=== PATIENT | male | born 1990 | race Caucasian/White ===

== ENCOUNTER 2023-03-22 22:28 | Emergency (ER) | payer OTHER, SELFPAY ==
[2023-03-22] VITALS (7 sets, daily range): BP systolic 128–138; BP diastolic 67–71; PULSE 61–70; RESP 18; TEMP 36.7; O2SAT 93–94; BMI 28.9
--- NOTE | 2023-03-22 22:44 | CRLHL7_ITS ---
For Patients: As a result of the Century Cures Act, medical imaging exams and procedure reports are released immediately into your electronic medical record. You may view this report before your referring provider. If you have questions, please contact your health care provider. INDICATION: Vertigo COMPARISON: None available. TECHNIQUE: CT examination of the head was performed with 3 mm thick axial and 2 mm thick coronal and sagittal sections without intravenous contrast. Images were obtained from the vertex of the skull through the skull base, and I examined the images with the brain and bone windows. Please note that all CT scans at this facility use dose modulation, iterative reconstruction, and/or weight-based dosing when appropriate to reduce radiation dose to as low as reasonably achievable. FINDINGS: : The brain is normal in appearance for the patient`s age on today`s study, with no sign of mass lesion, mass effect, hemorrhage, or edema. The ventricles and sulci are normal in appearance for the patient`s age. The visualized portions of the orbits are normal in appearance. The visualized portions of the paranasal sinuses and mastoids are clear. The osseous structures are normal in their appearance with no sign of abnormality in the skull base or calvarium. IMPRESSION: Normal noncontrast CT of the head for the patient`s age. Please note that all CT scans at this facility use dose modulation, iterative reconstruction, and/or weight-based dosing when appropriate to reduce radiation dose to as low as reasonably achievable. Dictated by Timmy Petty MD @ 03/23/2023 12:19:41 AM (Electronically Signed)
--- NOTE | 2023-03-22 22:46 | ED_ITS ---
HPI - General Adult General Time Seen by Provider: 22:46 <Luke Cool MD - Last Filed: 03/23/23 09:24> Date Seen: 03/22/23 <Luke Cool MD - Last Filed: 03/23/23 09:24> Chief complaint: Nausea/Vomiting <Luke Cool MD - Last Filed: 03/23/23 09:24> Stated complaint: Nausea Vomiting <Luke Cool MD - Last Filed: 03/23/23 09:24> Time Seen by Provider: 03/22/23 22:33 <Luke Cool MD - Last Filed: 03/23/23 09:24> Source: patient <uLke Cool MD - Last Filed: 03/23/23 09:24> Mode of arrival: wheelchair <Luke Cool MD - Last Filed: 03/23/23 09:24> Limitations: physical limitation <Luke Cool MD - Last Filed: 03/23/23 09:24> History of Present Illness HPI narrative: 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 If he moves his head quickly or turns his head side to side he gets dizzy. He went to [facility] got some meclizine but it did not seem to help much and then decided to come to the ER. Patient denies chest pain breathing problem. He is very healthy he has no chronic medical illnesses. He has not had any recent fever chills cough chest pain. <Luke Cool MD - Last Filed: 03/23/23 09:24> Related Data Allergies/adverse reactions: Allergies Allergy/AdvReac Type Severity Reaction Status Date / Time No Known Drug Allergies Allergy Verified 03/22/23 22:37 <Luke Cool MD - Last Filed: 03/23/23 09:24> Review of Systems Status of ROS: Reports: 6 or more systems reviewed and unremarkable except as noted in History and below <Luke Cool MD - Last Filed: 03/23/23 09:24> PFSH PFSH Social History: Social History Smoking Status: Never smoker Do you use any of these nicotine containing products: None How often do you have a drink containing alcohol: 2-3 times a week How many standard drinks containing alcohol do you have on a typical day: 1 or 2 How often do you have six or more drinks on one occasion: Less than monthly AUDIT-C Alcohol total score: 4 Non-prescribed substance use: denies use <Luke Cool MD - Last Filed: 03/23/23 09:24> Exam Narrative: Exam Narrative: Objective: Vital signs unremarkable in general patient apparent distress he is alert orient x3 HEENT shows dry mucous membranes minimal nystagmus pupils react equal reaction to light neck is supple chest clear heart rhythm regular heart murmur abdomen benign soft extremities neurologic nonfocal, skin periphery warm and dry <Luke Cool MD - Last Filed: 03/23/23 09:24> Const: Vital Signs, click to edit/add: Vital Signs - 24 hr 03/22/23 22:32 03/22/23 23:31 03/22/23 23:16 Temperature 98.1 F Pulse Rate 70 Pulse Rate [Pulse Oximeter] 70 Respiratory Rate 18 Blood Pressure Blood Pressure [Ri ght Forearm] 138/67 Pulse Oximetry 94 94 93 Oxygen Delivery Me thod Room Air 03/22/23 23:30 03/22/23 23:37 03/23/23 01:13 Temperature 97.5 F L Pulse Rate 68 67 Pulse Rate [Pulse Oximeter] 65 Respiratory Rate 20 Blood Pressure 128/71 Blood Pressure [Ri ght Forearm] 122/70 Pulse Oximetry 94 94 Oxygen Delivery Me thod 03/22/23 23:38 03/22/23 23:48 03/23/23 00:00 Temperature Pulse Rate 68 61 69 Pulse Rate [Pulse Oximeter] Respiratory Rate Blood Pressure Blood Pressure [Ri ght Forearm] Pulse Oximetry 94 94 95 Oxygen Delivery Me thod 03/23/23 00:15 03/23/23 00:30 03/23/23 00:45 Temperature Pulse Rate 67 68 90 Pulse Rate [Pulse Oximeter] Respiratory Rate Blood Pressure Blood Pressure [Ri ght Forearm] Pulse Oximetry 95 97 97 Oxygen Delivery Me thod 03/23/23 00:51 Temperature Pulse Rate 73 Pulse Rate [Pulse Oximeter] Respiratory Rate Blood Pressure 122/70 Blood Pressure [Ri ght Forearm] Pulse Oximetry 97 Oxygen Delivery Me thod <Luke Cool MD - Last Filed: 03/23/23 09:24> Vital Signs, click to edit/add: Vital Signs - 24 hr 03/22/23 22:32 03/22/23 23:31 03/22/23 23:16 Temperature 98.1 F Pulse Rate 70 Pulse Rate [Pulse Oximeter] 70 Respiratory Rate 18 Blood Pressure Blood Pressure [Ri ght Forearm] 138/67 Pulse Oximetry 94 94 93 Oxygen Delivery Me thod Room Air 03/22/23 23:30 03/22/23 23:37 03/23/23 01:13 Temperature 97.5 F L Pulse Rate 68 67 Pulse Rate [Pulse Oximeter] 65 Respiratory Rate 20 Blood Pressure 128/71 Blood Pressure [Ri ght Forearm] 122/70 Pulse Oximetry 94 94 Oxygen Delivery Me thod 03/22/23 23:38 03/22/23 23:48 03/23/23 00:00 Temperature Pulse Rate 68 61 69 Pulse Rate [Pulse Oximeter] Respiratory Rate Blood Pressure Blood Pressure [Ri ght Forearm] Pulse Oximetry 94 94 95 Oxygen Delivery Me thod 03/23/23 00:15 03/23/23 00:30 03/23/23 00:45 Temperature Pulse Rate 67 68 90 Pulse Rate [Pulse Oximeter] Respiratory Rate Blood Pressure Blood Pressure [Ri ght Forearm] Pulse Oximetry 95 97 97 Oxygen Delivery Me thod 03/23/23 00:51 Temperature Pulse Rate 73 Pulse Rate [Pulse Oximeter] Respiratory Rate Blood Pressure 122/70 Blood Pressure [Ri ght Forearm] Pulse Oximetry 97 Oxygen Delivery Me thod <Clifford Huerta MD - Last Filed: 03/23/23 09:13> Course Vital Signs Vital signs: Initial Vital Signs Temperature 98.1 F 03/22/23 22:32 Temperature Source Temporal Artery Scan 03/22/23 22:32 Pulse Rate 70 03/22/23 22:32 Pulse Rhythm Regular 03/22/23 22:32 Respiratory Rate 18 03/22/23 22:32 Blood Pressure 138/67 03/22/23 22:32 Blood Pressure Mean 90 03/22/23 22:32 Pulse Oximetry 94 03/22/23 22:32 Oxygen Delivery Method Room Air 03/22/23 22:32 Vital Signs Temperature 98.1 F 03/22/23 22:32 Pulse Rate 70 03/22/23 22:32 Respiratory Rate 18 03/22/23 22:32 Blood Pressure 138/67 03/22/23 22:32 Pulse Oximetry 94 03/22/23 22:32 Oxygen Delivery Method Room Air 03/22/23 22:32 Temperature 97.5 F L 03/23/23 01:13 Pulse Rate 65 03/23/23 01:13 Respiratory Rate 20 03/23/23 01:13 Blood Pressure 122/70 03/23/23 01:13 Pulse Oximetry 97 03/23/23 00:51 Oxygen Delivery Method Room Air 03/22/23 22:32 <Luke Cool MD - Last Filed: 03/23/23 09:24> Initial Vital Signs Temperature 98.1 F 03/22/23 22:32 Temperature Source Temporal Artery Scan 03/22/23 22:32 Pulse Rate 70 03/22/23 22:32 Pulse Rhythm Regular 03/22/23 22:32 Respiratory Rate 18 03/22/23 22:32 Blood Pressure 138/67 03/22/23 22:32 Blood Pressure Mean 90 03/22/23 22:32 Pulse Oximetry 94 03/22/23 22:32 Oxygen Delivery Method Room Air 03/22/23 22:32 Vital Signs Temperature 98.1 F 03/22/23 22:32 Pulse Rate 70 03/22/23 22:32 Respiratory Rate 18 03/22/23 22:32 Blood Pressure 138/67 03/22/23 22:32 Pulse Oximetry 94 03/22/23 22:32 Oxygen Delivery Method Room Air 03/22/23 22:32 Temperature 97.5 F L 03/23/23 01:13 Pulse Rate 65 03/23/23 01:13 Respiratory Rate 20 03/23/23 01:13 Blood Pressure 122/70 03/23/23 01:13 Pulse Oximetry 97 03/23/23 00:51 Oxygen Delivery Method Room Air 03/22/23 22:32 <Clifford Huerta MD - Last Filed: 03/23/23 09:13> Medical Decision Making MDM Narrative Medical decision making narrative: [age] year white male with history of vertigo, nausea dehydration from the dizziness. I think it be reasonable at this point give he has not had this in the past to get a head CT scan, will check laboratory studies game IV fluid, IV Ativan. Disposition pending his improvement in findings. Addendum: Patient's EKG shows nonspecific changes, but usually this is associated in the young person with a healthy heart, I do not see any obvious ischemic change may have some mild early repolarization. White count hemoglobin are normal Addendum 11:45 p.m.: The patient feels better with his Ativan he is sedated from it. He he has had CT now, if his CT scan looks reassuring, into the med Ativan home rest light activity recommended. His EKG shows normal sinus rhythm as mention. Reviewing the patient's head CT scan it looks largely unremarkable, await Radiology overreading at this looks negative, I think he can go home with Ativan as needed, off work for couple of days light activity. His laboratory studies thus far look reassuring <Luke Cool MD - Last Filed: 03/23/23 09:24> [age] year white male with history of vertigo, nausea dehydration from the dizziness. I think it be reasonable at this point give he has not had this in the past to get a head CT scan, will check laboratory studies game IV fluid, IV Ativan. Disposition pending his improvement in findings. Addendum: Patient's EKG shows nonspecific changes, but usually this is associated in the young person with a healthy heart, I do not see any obvious ischemic change may have some mild early repolarization. White count hemoglobin are normal Addendum 11:45 p.m.: The patient feels better with his Ativan he is sedated from it. He he has had CT now, if his CT scan looks reassuring, into the med Ativan home rest light activity recommended. His EKG shows normal sinus rhythm as mention. Reviewing the patient's head CT scan it looks largely unremarkable, await Radiology overreading at this looks negative, I think he can go home with Ativan as needed, off work for couple of days light activity. His laboratory studies thus far look reassuring Deanna -- received patient at change of shift pending formal over-read of head CT. This was noted to be normal by Radiology. Carl is sleeping when I go to evaluate. He has managed to keep down some crackers and soda. Clearly sleepy but seems overall improved. Ambulating then to the bathroom without notable difficulty. See patient discharge plan per Dr. Cool. <Clifford Huerta MD - Last Filed: 03/23/23 09:13> Lab Data Labs: Lab Results 03/22/23 Range/Units 22:57 WBC 7.49 (4.50-11.00) K/uL RBC 5.16 (4.30-5.90) m/uL Hgb 15.2 (13.5-17.5) gm/dL Hct 45.3 (37.0-53.0) % MCV 88 (80-100) fL MCH 30 (26-34) pg MCHC 34 (32-36) gm/dL RDW Coeff of Janelle 12.5 (11.5-15.5) % Plt Count 261 (140-440) K/uL Neut % (Auto) 73.7 H (42.0-72.0) % Lymph % (Auto) 14.8 L (20-44) % [place] % (Auto) 8.8 (0.0-11.0) % Eos % (Auto) 1.9 (0.0-7.0) % Baso % (Auto) 0.3 (0.0-3.0) % Neut # (Auto) 5.50 (1.7-7.0) K/uL Lymph # (Auto) 1.10 (0.90-2.90) K/uL [place] # (Auto) 0.70 (0.00-0.90) K/UL Eos # (Auto) 0.14 (0.00-0.50) K/uL Baso # (Auto) 0.02 (0.00-0.30) K/uL Sodium 138 (135-149) mmol/L Potassium 3.8 (3.6-5.1) mmol/L Chloride 107 (96-114) mmol/L Carbon Dioxide 23 (20-32) mmol/L BUN 17 (5-24) mg/dL Creatinine 0.8 (0.5-1.5) mg/dL Estimated Creat Clear 133.79 Estimated GFR 121 ml/min Glucose 137 H (60-115) mg/dL Calcium 9.1 (8.4-10.6) mg/dL Total Bilirubin 1.0 (0.1-1.5) mg/dL Direct Bilirubin 0.2 (0.0-0.5) mg/dL AST 37 H (12-35) U/L ALT 49 (4-50) U/L Alkaline Phosphatase 61 (40-150) U/L C-Reactive Protein 1.3 H (0.5-1.0) mg/dL Total Protein 7.1 (6.0-8.3) g/dL Albumin 4.4 (3.3-5.0) g/dL SARS-CoV-2 (PCR) Negative SARS-CoV-2 (Negative) Influenza Type A (PCR) Negative PCR FLU A (Negative) Influenza Type B (PCR) Negative PCR FLU B (Negative) RSV (PCR) Negative PCR RSV (Negative) <Luke Cool MD - Last Filed: 03/23/23 09:24> Lab Results 03/22/23 Range/Units 22:57 WBC 7.49 (4.50-11.00) K/uL RBC 5.16 (4.30-5.90) m/uL Hgb 15.2 (13.5-17.5) gm/dL Hct 45.3 (37.0-53.0) % MCV 88 (80-100) fL MCH 30 (26-34) pg MCHC 34 (32-36) gm/dL RDW Coeff of Janelle 12.5 (11.5-15.5) % Plt Count 261 (140-440) K/uL Neut % (Auto) 73.7 H (42.0-72.0) % Lymph % (Auto) 14.8 L (20-44) % [place] % (Auto) 8.8 (0.0-11.0) % Eos % (Auto) 1.9 (0.0-7.0) % Baso % (Auto) 0.3 (0.0-3.0) % Neut # (Auto) 5.50 (1.7-7.0) K/uL Lymph # (Auto) 1.10 (0.90-2.90) K/uL [place] # (Auto) 0.70 (0.00-0.90) K/UL Eos # (Auto) 0.14 (0.00-0.50) K/uL Baso # (Auto) 0.02 (0.00-0.30) K/uL Sodium 138 (135-149) mmol/L Potassium 3.8 (3.6-5.1) mmol/L Chloride 107 (96-114) mmol/L Carbon Dioxide 23 (20-32) mmol/L BUN 17 (5-24) mg/dL Creatinine 0.8 (0.5-1.5) mg/dL Estimated Creat Clear 133.79 Estimated GFR 121 ml/min Glucose 137 H (60-115) mg/dL Calcium 9.1 (8.4-10.6) mg/dL Total Bilirubin 1.0 (0.1-1.5) mg/dL Direct Bilirubin 0.2 (0.0-0.5) mg/dL AST 37 H (12-35) U/L ALT 49 (4-50) U/L Alkaline Phosphatase 61 (40-150) U/L C-Reactive Protein 1.3 H (0.5-1.0) mg/dL Total Protein 7.1 (6.0-8.3) g/dL Albumin 4.4 (3.3-5.0) g/dL SARS-CoV-2 (PCR) Negative SARS-CoV-2 (Negative) Influenza Type A (PCR) Negative PCR FLU A (Negative) Influenza Type B (PCR) Negative PCR FLU B (Negative) RSV (PCR) Negative PCR RSV (Negative) <Clifford Huerta MD - Last Filed: 03/23/23 09:13> Discharge Plan Discharge Clinical Impression: Acute dehydration, Dizziness <Luke Cool MD - Last Filed: 03/23/23 09:24> Patient Disposition: Home w/ Parent or Adult <Luke Cool MD - Last Filed: 03/23/23 09:24> Condition: Improved <Luke Cool MD - Last Filed: 03/23/23 09:24> Additional Instructions: Light activity, off work tomorrow, Ativan as needed for dizziness. Remember that it is a sedative. Recommend recheck with regular doctor in a couple of days; return to ED sooner if worsening again and unrelieved with Ativan. <Luke Cool MD - Last Filed: 03/23/23 09:24> Activity Level: Light activity <Luke Cool MD - Last Filed: 03/23/23 09:24> Light activity <Clifford Huerta MD - Last Filed: 03/23/23 09:13> Discharge Diet: Regular <Luke Cool MD - Last Filed: 03/23/23 09:24> Regular <Clifford Huerta MD - Last Filed: 03/23/23 09:13> Stand Alone Forms: [facility] Info Instructions <Luke Cool MD - Last Filed: 03/23/23 09:24>
[2023-03-22] MEDS: LORazepam 2 MG/ML inj 1 MG IVP (23:01)
[2023-03-22] MEDS: 0.9 % SODIUM CHLORIDE 1000 ml 1,000 ML 6000 ML IV (23:02)
[2023-03-22 23:25] LABS: Basophils Absolute Auto 0.02 K/uL (0.00-0.30); Basophils Percent Auto 0.3 % (0.0-3.0); Eosinophils Absolute Auto 0.14 K/uL (0.00-0.50); Eosinophils Percent Auto 1.9 % (0.0-7.0); Hematocrit 45.3 % (37.0-53.0); Hemoglobin* 15.2 gm/dL (13.5-17.5); Immature Granulocytes Abs Auto 0.04 K/uL (0.00-0.30); Immature Granulocytes Pct Auto 0.5 %; Lymphocytes Percent Auto 14.8 % (20-44); Mean Corpuscular HGB Conc 34 gm/dL (32-36); Mean Corpuscular Hemoglobin 30 pg (26-34); Mean Corpuscular Volume 88 fL (80-100); Monocytes Percent Auto 8.8 % (0.0-11.0); Neutrophils Percent Auto 73.7 % (42.0-72.0); Platelet Count* 261 K/uL (140-440); RDW Coefficient of Variation % 12.5 % (11.5-15.5); Red Blood Count 5.16 m/uL (4.30-5.90); White Blood Count* 7.49 K/uL (4.50-11.00)
[2023-03-22 23:28] LABS: Slide Review Reflex No
[2023-03-22 23:36] LABS: Albumin* 4.4 g/dL (3.3-5.0); Chloride* 107 mmol/L (96-114)
[2023-03-22 23:37] LABS: Potassium* 3.8 mmol/L (3.6-5.1); Sodium* 138 mmol/L (135-149)
[2023-03-22 23:39] LABS: Aspartate Amino Transferase* 37 U/L (12-35); Bilirubin Direct* 0.2 mg/dL (0.0-0.5); Carbon Dioxide* 23 mmol/L (20-32); Creatinine* 0.8 mg/dL (0.5-1.5); Est. Creatinine Clearance* 133.79; Estimated Glomerular Filt Rate 121 ml/min; Total Protein* 7.1 g/dL (6.0-8.3)
[2023-03-22 23:40] LABS: Alanine Aminotransferase* 49 U/L (4-50); Alkaline Phosphatase* 61 U/L (40-150); Blood Urea Nitrogen* 17 mg/dL (5-24); Calcium* 9.1 mg/dL (8.4-10.6); Glucose* 137 mg/dL (60-115)
[2023-03-22 23:42] LABS: C Reactive Protein* 1.3 mg/dL (0.5-1.0)
[2023-03-22 23:59] LABS: PCR FLU A Negative PCR FLU A (Negative); PCR FLU B Negative PCR FLU B (Negative); PCR RSV Negative PCR RSV (Negative)
[2023-03-23] VITALS: PULSE 69; O2SAT 95
[2023-03-23 00:02] LABS: SARS PCR* Negative SARS-CoV-2 (Negative)
[2023-03-23 00:15] VITALS: PULSE 67; O2SAT 95
[2023-03-23 00:30] VITALS: PULSE 68; O2SAT 97
[2023-03-23 00:45] VITALS: PULSE 90; O2SAT 97
[2023-03-23 00:51] VITALS: BP 122/70; PULSE 73; O2SAT 97
--- NOTE | 2023-03-23 00:59 | PC.NURSE ---
patient able to tolerate a walk around the unit, sprite and crackers with out nausea/vomiting. patient DC instructions gone over with patient and significant other, no further questions. work note provided for patient.
[2023-03-23 01:13] VITALS: BP 122/70; PULSE 65; RESP 20; TEMP 36.4
== END 2023-03-23 01:13 | disposition home or self-care (01) ==
LOC: ED 23:54
PROVIDERS: Emergency Provider Family Medicine
DX: E86.0 Dehydration (principal); R42 Dizziness and giddiness
CPT/HCPCS: 36415; 70450; 80048; 80076; 85025; 86140; 87631; 93005; 94761; 96374; 99284; 99285; J2060; J7030